=== PATIENT | male | born 1940 | race Caucasian/White ===

== ENCOUNTER → 2016-11-24 | Outpatient (CLI) | payer OTHER, MEDICARE | END | disposition short-term general hospital (02) | LOC: CLSURG 08:08 | DX: K43.6 Other and unspecified ventral hernia with obstruction, without gangrene (principal) ==

== ENCOUNTER → 2016-12-30 | Outpatient (CLI) | payer OTHER, MEDICARE | END | disposition short-term general hospital (02) | LOC: CLONCO 13:17 | DX: E61.1 Iron deficiency (principal); K46.9 Unspecified abdominal hernia without obstruction or gangrene; Z85.01 Personal history of malignant neoplasm of esophagus; Z98.890 Other specified postprocedural states ==